=== PATIENT | female | born 1995 | race Caucasian/White ===

== ENCOUNTER 2016-08-08 11:56 | Emergency (ER) | payer OTHER ==
--- NOTE | 2016-08-08 12:15 | EDPHY ---
H & P Stated Complaint: LISTS SYMPTOMS OF ALMOST PASSING OUT LAST NIGHT LASTING SEVERAL MINUTES HPI/ROS: HPI CHIEF COMPLAINT: Presyncope HISTORY OF PRESENT ILLNESS: This patient very pleasant 21-year-old female she presents emergency room by private vehicle with her mom for acute onset of lightheadedness, tunnel vision, palpitations, nausea, diaphoresis and almost passing out at 11:30 p.m. last night. Patient states that she got up after lying flat and then went to the kitchen where her mom was to feed her cat. States she suddenly got lightheaded, tunnel vision, associated nausea, diaphoresis, and feeling as if she was going to pass out she did feel palpitation tonight chest pain. She did have some abdominal cramping associated with this she went to the bathroom and she did not feel well she sat down put her head between her legs and the symptoms slowly got better. She tells me this lasted approximately 2 minutes. She went to bed woke up this morning and felt fine. After further discussion with her mom this morning they decided to come to the emergency room to get checked out to make sure she is okay. She does have a history of palpitations however never ended up getting a Holter monitor. Has not had any recent episodes of syncope. currently upon arrival to the emergency room the patient appears well nontoxic in no acute distress has no complaints. Past Medical History: denies any medical history Past Surgical History: Denies any surgical history Social History: Denies use of drugs alcohol tobacco products Family History: No significant family history of sudden cardiac , no significant family history of a arrhythmias, or DE ROS REVIEW OF SYSTEMS: A comprehensive 10 point review of systems is otherwise negative aside from elements mentioned in the history of present illness. Exam Constitutional Appears well, triage nursing summary reviewed, vital signs reviewed, awake/alert. Eyes normal conjunctivae and sclera, EOMI, PERRLA. HENT normal inspection, atraumatic, moist mucus membranes, no epistaxis, neck supple/ no meningismus, no raccoon eyes. Respiratory clear to auscultation bilaterally, normal breath sounds, no respiratory distress, no wheezing. Cardiovascular rate normal, regular rhythm, no murmur, no edema, distal pulses normal. Gastrointestinal soft, non-tender, no rebound, no guarding, normal bowel sounds, no distension, no pulsatile mass. Genitourinary no CVA tenderness. Musculoskeletal no midline vertebral tenderness, full range of motion, no calf swelling, no tenderness of extremities, no meningismus, good pulses, neurovascularly intact. Skin pink, warm, & dry, no rash, skin atraumatic. Neurologic awake, alert and oriented x 3, AAOx3, moves all 4 extremities equally, motor intact, sensory intact, CN II-XII intact, normal cerebellar, normal vision, normal speech. Psychiatric normal mood/affect. Heme/Lymph/Immune no lymphadenopathy. Differential Diagnosis: includes but is not limited to in a particular order orthostatic hypotension, orthostatic syncope, vasovagal syncope, dehydration, cardiac arrhythmia, electrolyte abnormality Medical Decision Making: This patient had an IV established obtain blood work, patient be placed on monitoring manager will obtain EKG, chest x-ray will check a D -dimer, test, thyroid, for her complaints of almost passing out. Re-evaluation: EKG interpretation by me on record in [employer] system. Impression time of EKG 12:37 p.m.. This is sinus rhythm rate of 91. No signs of acute ischemia. There is no signs of WPW or Brugada. This is a normal appearing EKG. No prolonged intervals. No signs of cardiac arrhythmia on this EKG. ED x-ray chest one view: Negative for acute cardiopulmonary disease. Image interpreted by myself. 1602: re-evaluation at this time this patient is resting comfortably has no complaints specifically denies chest pain shortness of breath. She ambulated well throughout the emergency room without any difficulty. Specifically she did not have any lightheadedness, or signs of feeling as if she is going to pass out. It was noted to me by nursing staff that she did drink multiple alcoholic beverages prior to her symptoms that day. I explained to her she should refrain from drinking alcohol for the next 2 weeks, stay well-hydrated. Follow up with Cardiology for palpitations. She does understand if she develops chest pain, or passes out she needs return to the emergency room. It is noted her troponin is negative, EKG is nonischemic no signs of a arrhythmia. Electrolytes are appropriate. Was noted that her CK was elevated at 900 this may be due to dehydration she did receive 2 L of fluid and her CKs trended down to 700. Again she has not had any chest pain shortness of breath or acute symptoms here in the emergency room she is comfortable plan for discharge. Source: Patient - Personal History LMP (Females 10-55): 1-7 Days Ago Current Tetanus Diphtheria and Acellular Pertussis (TDAP): Yes Tetanus Vaccine Date: < 10 YEARS - Medical/Surgical History Hx Asthma: No Hx Chronic Respiratory Disease: No Hx Diabetes: No Hx Cardiac Disease: No Hx Renal Disease: No Hx Cirrhosis: No Hx Alcoholism: No Hx HIV/AIDS: No Hx Splenectomy or Spleen Trauma: No Other PMH: OTHER EPISODES OF HEART FLUTTERING, HYPOGLYCEMIA, ORAL SURGERIES - Social History Smoking Status: Never smoked Constitutional: Initial Vital Signs Temperature (C) 36.8 C 08/08/16 11:58 Heart Rate 101 H 08/08/16 11:58 Respiratory Rate 16 08/08/16 11:58 Blood Pressure 130/93 H 08/08/16 11:58 O2 Sat (%) 95 08/08/16 11:58 O2 Delivery Mode Room Air Allergies/Adverse Reactions: diphenhydramine HCl [From Benadryl] Allergy (Intermediate, Verified 08/08/16 12: 05) heart racing loratadine [From Claritin] Allergy (Intermediate, Verified 08/08/16 12:05) heart racing codeine [Codeine] Allergy (Unknown, Verified 08/08/16 12:05) family allergy Home Medications: Medication Instructions Recorded Control Pills 08/08/16 ZYRTEC 08/08/16 Medical Decision Making - Data Points Laboratory Results: Laboratory Results 08/08/16 12:42 08/08/16 12:42 08/08/16 08/08/16 15:30 12:42 WBC 6.02 10^3/uL (3.80-9.50) RBC 5.09 10^6/uL (4.18-5.33) Hgb 14.5 g/dL (12.6-16.3) Hct 43.9 % (38.0-47.0) MCV 86.2 fL (81.5-99.8) MCH 28.5 pg (27.9-34.1) MCHC 33.0 g/dL (32.4-36.7) RDW 13.1 % (11.5-15.2) Plt Count 201 10^3/uL (150-400) MPV 11.0 fL (8.7-11.7) Neut % (Auto) 53.5 % (39.3-74.2) Lymph % (Auto) 39.0 % (15.0-45.0) Wise % (Auto) 5.5 % (4.5-13.0) Eos % (Auto) 1.3 % (0.6-7.6) Baso % (Auto) 0.5 % (0.3-1.7) Nucleat RBC Rel Count 0.0 % (0.0-0.2) Absolute Neuts (auto) 3.22 10^3/uL (1.70-6.50) Absolute Lymphs (auto) 2.35 10^3/uL (1.00-3.00) Absolute Monos (auto) 0.33 10^3/uL (0.30-0.80) Absolute Eos (auto) 0.08 10^3/uL (0.03-0.40) Absolute Basos (auto) 0.03 10^3/uL (0.02-0.10) Absolute Nucleated RBC 0.00 10^3/uL (0-0.01) Immature Gran % 0.2 % (0.0-1.1) Immature Gran # 0.01 10^3/uL (0.00-0.10) PT 14.0 SEC (12.0-15.0) INR 1.09 (0.83-1.16) APTT 23.9 SEC (23.0-38.0) D-Dimer < 0.27 ug/mLFEU (0.00-0.50) Sodium 144 mEq/L (134-144) Potassium 4.1 mEq/L (3.5-5.2) Chloride 108 mEq/L (97-110) Carbon Dioxide 25 mEq/l (22-31) Anion Gap 11 mEq/L (8-16) BUN 11 mg/dL (7-23) Creatinine 0.7 mg/dL (0.6-1.0) Estimated GFR > 60 Glucose 78 mg/dL (70-100) Calcium 9.4 mg/dL (8.5-10.4) Magnesium 2.0 mg/dL (1.6-2.3) Total Bilirubin 0.7 mg/dL (0.1-1.4) Conjugated Bilirubin 0.2 mg/dL (0.0-0.5) Unconjugated Bilirubin 0.5 mg/dL (0.0-1.1) AST 45 IU/L (14-46) ALT 36 IU/L (9-52) Alkaline Phosphatase 58 IU/L (38-126) Creatine Kinase 719 H IU/L 900 H IU/L (0-156) (0-156) CK-MB (CK-2) Fraction Pending 11.00 H ng/mL (0-3.19) CK-MB (CK-2) % Pending 1.2 % (0.0-4.0) Creatine Kinase Interp Pending NEGATIVE (NEGATIVE) Troponin I < 0.012 ng/mL (0-0.034) NT-Pro-B Natriuret Pep 31 pg/mL (0-125) Total Protein 7.7 g/dL (6.3-8.2) Albumin 4.4 g/dL (3.5-5.0) Lipase 73.0 IU/L (23-300) TSH 2.060 uIU/mL (0.465-4.680) Beta HCG, Qual NEGATIVE Medications Given: Discontinued Medications Sodium Chloride (Ns) 1,000 mls @ 0 mls/hr IV ONCE ONE PRN Reason: As Directed Stop: 08/08/16 12:31 Last Admin: 08/08/16 12:51 Dose: 1,000 mls Sodium Chloride (Ns) 1,000 mls @ 0 mls/hr IV ONCE ONE PRN Reason: Wide Open Stop: 08/08/16 14:21 Last Admin: 08/08/16 14:20 Dose: 1,000 mls Departure - Departure Disposition: Home, Routine, Self-Care Clinical Impression: Pre-syncope, Palpitations Condition: Good Instructions: Palpitations (ED), Near Syncope (ED) Additional Instructions: 1. Drink lots of fluids stay well-hydrated 2. return emergency room if you have any worsening symptoms questions or concerns this includes passing out or severe pain in her chest. 3. please follow up with Cardiology about palpitations. Call their for an appointment. Referrals: Judit Paul [Primary Care Provider] - As per Instructions Huyen Maloney MD [Medical Doctor] - As per Instructions
[2016-08-08] MEDS ORDERED: NS 1,000 ML IV ONE ×2 (12:30→14:20)
--- NOTE | 2016-08-08 12:39 | CPEKG ---
Heart Rate: 91 RR Interval: 659 P-R Interval: 180 QRSD Interval: 86 QT Interval: 352 QTC Interval: 434 P [place]: 33 QRS [place]: 61 T Wave [place]: 16 EKG Severity - NORMAL ECG - EKG Impression: SINUS RHYTHM Electronically Signed By: Eulalio Ford 09-Aug-2016 22:48:59
[2016-08-08 12:53] LABS: % IMMATURE GRANULYOCYTES 0.2 % (0.0-1.1); ABSOLUTE IMMATURE GRANULOCYTES 0.01 10^3/uL (0.00-0.10); ADD DIFF? NO; ADD MORPH? NO; ADD SCAN? NO; ATYPICAL LYMPHOCYTE FLAG 10 (0-99); FRAGMENT RBC FLAG 0 (0-99); HEMATOCRIT 43.9 % (38.0-47.0); HEMOGLOBIN 14.5 g/dL (12.6-16.3); LEFT SHIFT FLG 0 (0-99); LIPEMIA HEMOLYSIS FLAG 80 (0-99); MEAN CELL HEMOGLOBIN 28.5 pg (27.9-34.1); MEAN CELL VOLUME 86.2 fL (81.5-99.8); PLATELET CLUMPS FLAG 0 (0-99); PLATELET COUNT 201 10^3/uL (150-400); RED BLOOD CELL COUNT 5.09 10^6/uL (4.18-5.33); RED CELL DISTRIBUTION WIDTH 13.1 % (11.5-15.2)
[2016-08-08 13:02] LABS: INR 1.09 (0.83-1.16)
[2016-08-08 13:03] LABS: APTT 23.9 SEC (23.0-38.0)
--- NOTE | 2016-08-08 13:04 | DX ---
Chest, One View Portable at 1255 hours History: Palpitations, presyncope, nausea, chest pain. Comparison: None. Findings: Cardiac silhouette is normal in size. No pneumonia, congestive heart failure, pleural effu arik, or pneumothorax. Impression: 1. No acute pulmonary disease. 2. Consider chest two views when the patient's medical condition permits.
[2016-08-08 13:09] LABS: ALANINE AMINOTRANSFERASE 36 IU/L (9-52); ALBUMIN 4.4 g/dL (3.5-5.0); ALKALINE PHOSPHATASE 58 IU/L (38-126); ANION GAP 11 mEq/L (8-16); ASPARTATE AMINOTRANSFERASE 45 IU/L (14-46); BILIRUBIN,TOTAL 0.7 mg/dL (0.1-1.4); BILIRUBIN-CONJUGATED 0.2 mg/dL (0.0-0.5); BILIRUBIN-UNCONJUGATED 0.5 mg/dL (0.0-1.1); CALCIUM 9.4 mg/dL (8.5-10.4); CARBON DIOXIDE 25 mEq/l (22-31); CHLORIDE 108 mEq/L (97-110); CREATININE 0.7 mg/dL (0.6-1.0); GLOMERULAR FILTRATION RATE > 60; GLUCOSE 78 mg/dL (70-100); POTASSIUM 4.1 mEq/L (3.5-5.2); SODIUM 144 mEq/L (134-144); TOTAL PROTEIN 7.7 g/dL (6.3-8.2)
[2016-08-08 13:21] LABS: CK-MB INTERPRETATION NEGATIVE (NEGATIVE); TROPONIN I < 0.012 ng/mL (0-0.034)
[2016-08-08 15:57] LABS: CK-MB INTERPRETATION NEGATIVE (NEGATIVE)
[2016-08-08 16:11] LABS: CREATINE KINASE-MB FRACTION 8.13 ng/mL (0-4.55)
[2016-08-08] MEDS ORDERED: ONDANSETRON 4MG PREPACK#2 BTL TAKEHOME ONE ×2 (16:15→16:16)
[2016-08-08 16:27] VITALS: BP 134/76; PULSE 78; RESP 20; TEMP 97; O2SAT 98
== END 2016-08-08 16:28 | disposition home or self-care (01) ==
DX: R55 Syncope and collapse (principal); R00.2 Palpitations